=== PATIENT | male | born 1980 | race Two or more races ===

== ENCOUNTER → 2016-10-06 | Outpatient (CLI) | payer OTHER ==
--- NOTE | 2016-10-07 01:57 | REP ---
Clinical: Chronic lower back pain. Technique: AP, lateral, bilateral oblique and coned-down views of the lumbosacral spine. Findings: Spina bifida occulta at L5 noted. Alignment is maintained. No acute fracture / compression injury or subluxation. No evidence for spondylolysis or spondylolisthesis. Disc spaces are maintained and within normal limits. Impression: Spina bifida occulta at L5. Otherwise normal lumbosacral spine series. Signed by Milo Abbasi MD 10/07/2016 01:48 A
== END ==
LOC: M RAD 09:03
PROVIDERS: ATTEND Surgery
DX: Q76.0 Spina bifida occulta (principal); M54.5 Low back pain